=== PATIENT | female | born 1975 | race Caucasian/White ===

== ENCOUNTER → 2021-07-15 12:16 | Outpatient (BNVA) | payer BC, SELFPAY | PROVIDERS: Visit Provider Internal Medicine | DX: R53.83 Other fatigue (principal); R76.8 Other specified abnormal immunological findings in serum; L40.9 Psoriasis, unspecified; M79.642 Pain in left hand; M25.572 Pain in left ankle and joints of left foot | CPT/HCPCS: 36415; 72202; 73120; 73600; 81003; 82533; 82550; 82607; 82784; 83516; 84425; 84439; 84443; 85651; 86140; 86160; 86162; 86235; 86255; 86376; 86480; 86704; 86803; 87340 ==